=== PATIENT | female | born 1930 | race Caucasian/White ===

== ENCOUNTER 2020-09-21 14:35 | Inpatient (IN) | payer MEDICARE, MEDICAID ==
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
[2020-09-21 18:41] LABS: PTT,PARTIAL THROMBOPLSTIN TIME 27.8 SEC (22.0-34.0)
[2020-09-21 18:47] LABS: ANION GAP 9.8 mEq/L (7-13); CHLORIDE,CL 92 mmol/L (98-107); SODIUM,NA 132 mmol/L (136-145)
[2020-09-21] MEDS ORDERED: Budesonide 0.5 MG/2 ML Neb Susp INH SCH ×2 (20:00→21:00)
[2020-09-21] MEDS: Sertraline 50 MG Tab PO SCH (20:40)
[2020-09-21] MEDS: ClonazePAM 0.5 MG Tab PO PRN (20:41)
[2020-09-21] MEDS: Melatonin 3 MG Tab PO PRN (22:21)
[2020-09-22] MEDS: Pantoprazole 40 MG Tab.CR PO SCH ×2 (05:55→17:24)
[2020-09-22] MEDS: ClonazePAM 0.5 MG Tab PO PRN ×2 (07:59→17:24)
[2020-09-22] MEDS: Tamsulosin 0.4 MG Cap.ER PO SCH (07:59)
[2020-09-22] MEDS: Enoxaparin 40 MG/0.4 ML Syringe SUBCUT SCH (07:59)
[2020-09-22] MEDS: Cholecalciferol (Vitamin D3) 25 MCG Tab PO SCH (07:59)
[2020-09-22] MEDS: Sulfamethoxazole/Trimethoprim 800-160 MG Tab PO SCH ×2 (07:59→21:37)
[2020-09-22] MEDS: Aspirin 81 MG Tab.Chew PO SCH (07:59)
[2020-09-22] MEDS: Polyethylene Glycol 3350 Powder 17 GM Packet PO SCH (08:00)
[2020-09-22] MEDS: Ondansetron 4 MG Tab.DIS PO PRN ×2 (08:04→12:06)
[2020-09-22] MEDS ORDERED: Psyllium Husk Powder Sugar Free 5.85 GM Packet PO SCH (09:00)
[2020-09-22] MEDS ORDERED: Furosemide 20 MG Tab PO SCH (09:00)
[2020-09-22] MEDS ORDERED: Losartan 50 MG Tab PO SCH (09:00)
[2020-09-22] MEDS: Budesonide 0.5 MG/2 ML Neb Susp INH SCH ×2 (09:53→19:29)
[2020-09-22] MEDS: Calcium Carbonate 500 MG Tab.Chew PO PRN (14:20)
[2020-09-22] MEDS: Acetaminophen 325 MG Tab PO PRN ×2 (17:23→21:44)
[2020-09-22] MEDS: PROPYLENE GLYCOL EYEBOTH PRN (17:47)
[2020-09-22] MEDS: POLYETHYLENE GLYCOL EYEBOTH PRN (17:47)
[2020-09-22] MEDS ORDERED: Bismuth Subsalicylate 262 MG Tab.Chew PO PRN (18:36)
[2020-09-22] MEDS: Sertraline 50 MG Tab PO SCH (21:37)
[2020-09-22] MEDS: Melatonin 3 MG Tab PO PRN (21:43)
[2020-09-22] MEDS: SIM PO PRN (21:57)
[2020-09-22] MEDS: [UNRECOGNIZED DRUG - OTHER] PO PRN (21:57)
[2020-09-22] MEDS: MAG PO PRN (21:57)
[2020-09-22] MEDS: DIPHENHYD PO PRN (21:57)
[2020-09-23] MEDS: ClonazePAM 0.5 MG Tab PO PRN ×3 (01:27→21:51)
[2020-09-23] MEDS: Sertraline 50 MG Tab PO SCH ×2 (01:28→20:02)
[2020-09-23] MEDS: Pantoprazole 40 MG Tab.CR PO SCH ×2 (06:22→16:37)
[2020-09-23] MEDS: Budesonide 0.5 MG/2 ML Neb Susp INH SCH ×2 (08:00→18:55)
[2020-09-23] MEDS: Cholecalciferol (Vitamin D3) 25 MCG Tab PO SCH (09:16)
[2020-09-23] MEDS: Sulfamethoxazole/Trimethoprim 800-160 MG Tab PO SCH ×2 (09:16→20:02)
[2020-09-23] MEDS: Tamsulosin 0.4 MG Cap.ER PO SCH (09:17)
[2020-09-23] MEDS: Losartan 50 MG Tab PO SCH (09:17)
[2020-09-23] MEDS: Aspirin 81 MG Tab.Chew PO SCH (09:17)
[2020-09-23] MEDS: Polyethylene Glycol 3350 Powder 17 GM Packet PO SCH (09:18)
[2020-09-23] MEDS: Enoxaparin 40 MG/0.4 ML Syringe SUBCUT SCH (09:19)
[2020-09-23] MEDS: METAMUCIL PO SCH (09:20)
[2020-09-23] MEDS: BISMUTH SUBSALICYLATE 262 MG PO PRN (11:35)
[2020-09-23] MEDS: Ondansetron 4 MG Tab.DIS PO PRN (14:29)
[2020-09-23] MEDS: Acetaminophen 325 MG Tab PO PRN ×2 (14:32→20:04)
[2020-09-23] MEDS: Calcium Carbonate 500 MG Tab.Chew PO PRN (20:04)
[2020-09-23] MEDS: Albuterol 0.083% 2.5 MG/3 ML Neb Soln INH PRN (20:05)
[2020-09-23] MEDS: Melatonin 3 MG Tab PO PRN (21:50)
[2020-09-23] MEDS: POLYETHYLENE GLYCOL EYEBOTH PRN (22:20)
[2020-09-23] MEDS: PROPYLENE GLYCOL EYEBOTH PRN (22:20)
[2020-09-24] MEDS: Pantoprazole 40 MG Tab.CR PO SCH ×2 (06:11→15:40)
[2020-09-24] MEDS: Budesonide 0.5 MG/2 ML Neb Susp INH SCH ×2 (08:02→18:45)
[2020-09-24] MEDS: Sulfamethoxazole/Trimethoprim 800-160 MG Tab PO SCH ×2 (08:57→21:12)
[2020-09-24] MEDS: Tamsulosin 0.4 MG Cap.ER PO SCH (08:57)
[2020-09-24] MEDS: ClonazePAM 0.5 MG Tab PO PRN ×3 (08:57→23:38)
[2020-09-24] MEDS: hydrALAZINE 25 MG Tab PO SCH ×3 (08:57→23:48)
[2020-09-24] MEDS: Aspirin 81 MG Tab.Chew PO SCH (08:58)
[2020-09-24] MEDS: Losartan 50 MG Tab PO SCH (08:58)
[2020-09-24] MEDS: Enoxaparin 40 MG/0.4 ML Syringe SUBCUT SCH (08:58)
[2020-09-24] MEDS: METAMUCIL PO SCH (08:59)
[2020-09-24] MEDS: Polyethylene Glycol 3350 Powder 17 GM Packet PO SCH (08:59)
[2020-09-24] MEDS: Cholecalciferol (Vitamin D3) 25 MCG Tab PO SCH (08:59)
[2020-09-24] MEDS: Ondansetron 4 MG Tab.DIS PO PRN (13:33)
[2020-09-24] MEDS: Acetaminophen 325 MG Tab PO PRN ×2 (15:40→22:09)
[2020-09-24] MEDS: BISMUTH SUBSALICYLATE 262 MG PO PRN (16:44)
[2020-09-24] MEDS: Melatonin 3 MG Tab PO PRN (21:19)
[2020-09-24] MEDS: Sertraline 50 MG Tab PO SCH (21:19)
[2020-09-24] MEDS: SIM PO PRN (21:34)
[2020-09-24] MEDS: MAG PO PRN (21:34)
[2020-09-24] MEDS: [UNRECOGNIZED DRUG - OTHER] PO PRN (21:34)
[2020-09-24] MEDS: DIPHENHYD PO PRN (21:34)
[2020-09-25] MEDS: Acetaminophen 325 MG Tab PO PRN ×3 (04:21→20:25)
[2020-09-25] MEDS: Pantoprazole 40 MG Tab.CR PO SCH ×2 (06:20→15:36)
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
[2020-09-25] MEDS: Budesonide 0.5 MG/2 ML Neb Susp INH SCH ×2 (07:55→18:57)
[2020-09-25] MEDS ORDERED: cefTRIAXone 1 GM, Lidocaine 1% 2.1 ML IM ONE ×2 (09:00)
[2020-09-25] MEDS ORDERED: cefTRIAXone 1 GM Vial IM SCH (09:00)
[2020-09-25] MEDS: Aspirin 81 MG Tab.Chew PO SCH (09:57)
[2020-09-25] MEDS: Cholecalciferol (Vitamin D3) 25 MCG Tab PO SCH (09:57)
[2020-09-25] MEDS: Losartan 50 MG Tab PO SCH (09:57)
[2020-09-25] MEDS: Tamsulosin 0.4 MG Cap.ER PO SCH (09:58)
[2020-09-25] MEDS: Polyethylene Glycol 3350 Powder 17 GM Packet PO SCH (09:58)
[2020-09-25] MEDS: Sulfamethoxazole/Trimethoprim 800-160 MG Tab PO SCH (09:59)
[2020-09-25] MEDS: Enoxaparin 40 MG/0.4 ML Syringe SUBCUT SCH (10:02)
[2020-09-25] MEDS: PROPYLENE GLYCOL EYEBOTH PRN (10:04)
[2020-09-25] MEDS: POLYETHYLENE GLYCOL EYEBOTH PRN (10:04)
[2020-09-25] MEDS: METAMUCIL PO SCH (10:04)
[2020-09-25] MEDS: Enoxaparin 30 MG/0.3 ML Syringe SUBCUT SCH (10:16)
[2020-09-25] MEDS: hydrALAZINE 25 MG Tab PO SCH ×3 (10:18→23:24)
[2020-09-25] MEDS: ClonazePAM 0.5 MG Tab PO PRN ×2 (13:01→20:25)
[2020-09-25] MEDS: SENNOSIDES 8.6 MG PO SCH (14:32)
[2020-09-25] MEDS: Sertraline 50 MG Tab PO SCH (20:26)
[2020-09-25] MEDS: BISMUTH SUBSALICYLATE 262 MG PO PRN (20:28)
[2020-09-25] MEDS: Melatonin 3 MG Tab PO PRN (21:30)
[2020-09-25] MEDS: MAG PO PRN (21:39)
[2020-09-25] MEDS: [UNRECOGNIZED DRUG - OTHER] PO PRN (21:39)
[2020-09-25] MEDS: SIM PO PRN (21:39)
[2020-09-25] MEDS: DIPHENHYD PO PRN (21:39)
[2020-09-25] MEDS: oxyCODONE 5 MG Tab PO PRN (23:06)
[2020-09-26] MEDS: Pantoprazole 40 MG Tab.CR PO SCH ×2 (06:21→16:48)
[2020-09-26] MEDS: Budesonide 0.5 MG/2 ML Neb Susp INH SCH ×2 (07:35→17:58)
[2020-09-26] MEDS: hydrALAZINE 25 MG Tab PO SCH ×2 (08:19→16:48)
[2020-09-26] MEDS: Losartan 50 MG Tab PO SCH (08:20)
[2020-09-26] MEDS: Aspirin 81 MG Tab.Chew PO SCH (08:20)
[2020-09-26] MEDS: Enoxaparin 30 MG/0.3 ML Syringe SUBCUT SCH (08:20)
[2020-09-26] MEDS: Tamsulosin 0.4 MG Cap.ER PO SCH (08:20)
[2020-09-26] MEDS: Cholecalciferol (Vitamin D3) 25 MCG Tab PO SCH (08:20)
[2020-09-26] MEDS: Polyethylene Glycol 3350 Powder 17 GM Packet PO SCH (08:21)
[2020-09-26] MEDS: METAMUCIL PO SCH (08:25)
[2020-09-26] MEDS: ClonazePAM 0.5 MG Tab PO PRN ×2 (12:12→22:21)
[2020-09-26] MEDS: cefTRIAXone 1 GM, Lidocaine 1% 2.1 ML IM SCH ×2 (16:49)
[2020-09-26] MEDS: Sertraline 50 MG Tab PO SCH (20:17)
[2020-09-26] MEDS: Melatonin 3 MG Tab PO PRN (22:21)
[2020-09-27] MEDS: hydrALAZINE 25 MG Tab PO SCH ×3 (00:25→16:30)
[2020-09-27] MEDS: Pantoprazole 40 MG Tab.CR PO SCH ×2 (05:39→16:30)
[2020-09-27] MEDS: Acetaminophen 325 MG Tab PO PRN ×3 (05:39→22:23)
[2020-09-27] MEDS: Budesonide 0.5 MG/2 ML Neb Susp INH SCH ×2 (07:21→18:21)
[2020-09-27] MEDS: Polyethylene Glycol 3350 Powder 17 GM Packet PO SCH (09:00)
[2020-09-27] MEDS: Enoxaparin 30 MG/0.3 ML Syringe SUBCUT SCH (09:00)
[2020-09-27] MEDS: Ondansetron 4 MG Tab.DIS PO PRN (09:01)
[2020-09-27] MEDS: Losartan 50 MG Tab PO SCH (09:01)
[2020-09-27] MEDS: Tamsulosin 0.4 MG Cap.ER PO SCH (09:01)
[2020-09-27] MEDS: Cholecalciferol (Vitamin D3) 25 MCG Tab PO SCH (09:02)
[2020-09-27] MEDS: Aspirin 81 MG Tab.Chew PO SCH (09:02)
[2020-09-27] MEDS: METAMUCIL PO SCH (09:07)
[2020-09-27] MEDS: BISMUTH SUBSALICYLATE 262 MG PO PRN (10:42)
[2020-09-27] MEDS: ClonazePAM 0.5 MG Tab PO PRN ×2 (14:49→20:29)
[2020-09-27] MEDS: cefTRIAXone 1 GM, Lidocaine 1% 2.1 ML IM SCH ×2 (16:35)
[2020-09-27] MEDS: Sertraline 50 MG Tab PO SCH (20:30)
[2020-09-27] MEDS: Melatonin 3 MG Tab PO PRN (20:31)
[2020-09-28] MEDS: hydrALAZINE 25 MG Tab PO SCH ×3 (00:19→16:04)
[2020-09-28] MEDS: Pantoprazole 40 MG Tab.CR PO SCH ×2 (05:50→16:05)
[2020-09-28] MEDS: Budesonide 0.5 MG/2 ML Neb Susp INH SCH ×2 (08:16→18:28)
[2020-09-28] MEDS: Losartan 50 MG Tab PO SCH (09:14)
[2020-09-28] MEDS: Aspirin 81 MG Tab.Chew PO SCH (09:15)
[2020-09-28] MEDS: Tamsulosin 0.4 MG Cap.ER PO SCH (09:15)
[2020-09-28] MEDS: Enoxaparin 30 MG/0.3 ML Syringe SUBCUT SCH (09:16)
[2020-09-28] MEDS: Cholecalciferol (Vitamin D3) 25 MCG Tab PO SCH (09:17)
[2020-09-28] MEDS: Polyethylene Glycol 3350 Powder 17 GM Packet PO SCH (09:17)
[2020-09-28] MEDS: METAMUCIL PO SCH (09:23)
[2020-09-28] MEDS: ClonazePAM 0.5 MG Tab PO PRN ×2 (10:11→17:59)
[2020-09-28] MEDS: cefTRIAXone 1 GM, Lidocaine 1% 2.1 ML IM SCH ×2 (16:05)
[2020-09-28] MEDS: Acetaminophen 325 MG Tab PO PRN (21:41)
[2020-09-28] MEDS: Sertraline 50 MG Tab PO SCH (21:42)
[2020-09-28] MEDS: Melatonin 3 MG Tab PO PRN (21:42)
[2020-09-29] MEDS: hydrALAZINE 25 MG Tab PO SCH ×3 (00:14→16:16)
[2020-09-29] MEDS: ClonazePAM 0.5 MG Tab PO PRN ×3 (00:41→21:52)
[2020-09-29] MEDS: Pantoprazole 40 MG Tab.CR PO SCH ×2 (06:56→16:17)
[2020-09-29] MEDS: Cholecalciferol (Vitamin D3) 25 MCG Tab PO SCH (08:26)
[2020-09-29] MEDS: Aspirin 81 MG Tab.Chew PO SCH (08:26)
[2020-09-29] MEDS: Enoxaparin 30 MG/0.3 ML Syringe SUBCUT SCH (08:27)
[2020-09-29] MEDS: Tamsulosin 0.4 MG Cap.ER PO SCH (08:27)
[2020-09-29] MEDS: Polyethylene Glycol 3350 Powder 17 GM Packet PO SCH (08:27)
[2020-09-29] MEDS: Losartan 50 MG Tab PO SCH (08:28)
[2020-09-29] MEDS: METAMUCIL PO SCH (08:30)
[2020-09-29] MEDS: Budesonide 0.5 MG/2 ML Neb Susp INH SCH ×2 (11:15→18:55)
[2020-09-29] MEDS: Albuterol 0.083% 2.5 MG/3 ML Neb Soln INH PRN (11:15)
[2020-09-29] MEDS: Acetaminophen 325 MG Tab PO PRN (16:12)
[2020-09-29] MEDS: Sertraline 50 MG Tab PO SCH (21:50)
[2020-09-29] MEDS: Melatonin 3 MG Tab PO PRN (21:51)
[2020-09-30] MEDS: hydrALAZINE 25 MG Tab PO SCH ×4 (00:34→17:28)
[2020-09-30] MEDS: Acetaminophen 325 MG Tab PO PRN ×2 (00:46→21:02)
[2020-09-30] MEDS: oxyCODONE 5 MG Tab PO PRN (03:28)
[2020-09-30] MEDS: Pantoprazole 40 MG Tab.CR PO SCH ×2 (06:06→17:28)
[2020-09-30] MEDS: Budesonide 0.5 MG/2 ML Neb Susp INH SCH ×2 (08:11→18:55)
[2020-09-30] MEDS: Losartan 50 MG Tab PO SCH (09:47)
[2020-09-30] MEDS: Cholecalciferol (Vitamin D3) 25 MCG Tab PO SCH (09:47)
[2020-09-30] MEDS: Aspirin 81 MG Tab.Chew PO SCH (09:48)
[2020-09-30] MEDS: Tamsulosin 0.4 MG Cap.ER PO SCH (09:48)
[2020-09-30] MEDS: Enoxaparin 30 MG/0.3 ML Syringe SUBCUT SCH (09:48)
[2020-09-30] MEDS: ClonazePAM 0.5 MG Tab PO PRN ×3 (10:34→21:02)
[2020-09-30] MEDS: METAMUCIL PO SCH (13:40)
[2020-09-30] MEDS: Polyethylene Glycol 3350 Powder 17 GM Packet PO SCH (13:40)
[2020-09-30] MEDS: Sertraline 50 MG Tab PO SCH (21:00)
[2020-09-30] MEDS: Melatonin 3 MG Tab PO PRN (21:02)
[2020-10-01] MEDS: hydrALAZINE 25 MG Tab PO SCH ×3 (01:14→16:48)
[2020-10-01] MEDS: oxyCODONE 5 MG Tab PO PRN (01:47)
[2020-10-01] MEDS: Acetaminophen 325 MG Tab PO PRN ×2 (04:51→20:24)
[2020-10-01] MEDS: Pantoprazole 40 MG Tab.CR PO SCH ×2 (05:51→16:48)
[2020-10-01] MEDS: ClonazePAM 0.5 MG Tab PO PRN ×3 (05:52→20:25)
[2020-10-01] MEDS: Enoxaparin 30 MG/0.3 ML Syringe SUBCUT SCH (08:00)
[2020-10-01] MEDS: Tamsulosin 0.4 MG Cap.ER PO SCH (08:00)
[2020-10-01] MEDS: Cholecalciferol (Vitamin D3) 25 MCG Tab PO SCH (08:00)
[2020-10-01] MEDS: Polyethylene Glycol 3350 Powder 17 GM Packet PO SCH (08:01)
[2020-10-01] MEDS: Aspirin 81 MG Tab.Chew PO SCH (08:01)
[2020-10-01] MEDS: Losartan 50 MG Tab PO SCH (08:01)
[2020-10-01] MEDS: METAMUCIL PO SCH (08:08)
[2020-10-01] MEDS: Budesonide 0.5 MG/2 ML Neb Susp INH SCH ×2 (09:35→20:24)
[2020-10-01] MEDS: Melatonin 3 MG Tab PO PRN (20:25)
[2020-10-01] MEDS: Sertraline 50 MG Tab PO SCH (20:25)
[2020-10-02] MEDS: hydrALAZINE 25 MG Tab PO SCH ×4 (00:05→23:24)
[2020-10-02] MEDS: oxyCODONE 5 MG Tab PO PRN (01:16)
[2020-10-02] MEDS: Pantoprazole 40 MG Tab.CR PO SCH ×2 (06:30→16:14)
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
[2020-10-02] MEDS: Polyethylene Glycol 3350 Powder 17 GM Packet PO SCH (09:42)
[2020-10-02] MEDS: Enoxaparin 30 MG/0.3 ML Syringe SUBCUT SCH (09:42)
[2020-10-02] MEDS: Losartan 50 MG Tab PO SCH (09:47)
[2020-10-02] MEDS: Cholecalciferol (Vitamin D3) 25 MCG Tab PO SCH (09:47)
[2020-10-02] MEDS: METAMUCIL PO SCH (09:47)
[2020-10-02] MEDS: Aspirin 81 MG Tab.Chew PO SCH (09:47)
[2020-10-02] MEDS: Tamsulosin 0.4 MG Cap.ER PO SCH (09:47)
[2020-10-02] MEDS: Budesonide 0.5 MG/2 ML Neb Susp INH SCH ×2 (11:44→18:10)
[2020-10-02] MEDS: Acetaminophen 325 MG Tab PO PRN ×2 (14:43→21:26)
[2020-10-02] MEDS: ClonazePAM 0.5 MG Tab PO PRN (19:33)
[2020-10-02] MEDS: Sertraline 50 MG Tab PO SCH (21:20)
[2020-10-02] MEDS: Melatonin 3 MG Tab PO PRN (21:20)
[2020-10-03] MEDS: Acetaminophen 325 MG Tab PO PRN ×2 (02:41→19:27)
[2020-10-03] MEDS: Pantoprazole 40 MG Tab.CR PO SCH ×3 (04:53→16:02)
[2020-10-03] MEDS: oxyCODONE 5 MG Tab PO PRN (04:53)
[2020-10-03] MEDS: hydrALAZINE 25 MG Tab PO SCH ×2 (08:24→15:56)
[2020-10-03] MEDS: Ondansetron 4 MG Tab.DIS PO PRN (08:25)
[2020-10-03] MEDS: Tamsulosin 0.4 MG Cap.ER PO SCH (08:25)
[2020-10-03] MEDS: Cholecalciferol (Vitamin D3) 25 MCG Tab PO SCH (08:25)
[2020-10-03] MEDS: Losartan 50 MG Tab PO SCH (08:25)
[2020-10-03] MEDS: Aspirin 81 MG Tab.Chew PO SCH (08:25)
[2020-10-03] MEDS: Polyethylene Glycol 3350 Powder 17 GM Packet PO SCH (08:26)
[2020-10-03] MEDS: METAMUCIL PO SCH (08:27)
[2020-10-03] MEDS: Enoxaparin 30 MG/0.3 ML Syringe SUBCUT SCH (08:30)
[2020-10-03] MEDS: Budesonide 0.5 MG/2 ML Neb Susp INH SCH ×2 (08:35→18:38)
[2020-10-03] MEDS: ClonazePAM 0.5 MG Tab PO PRN ×2 (09:13→17:05)
[2020-10-03] MEDS: Sertraline 50 MG Tab PO SCH (21:31)
[2020-10-03] MEDS: Melatonin 3 MG Tab PO PRN (21:31)
[2020-10-03] MEDS: Albuterol 0.083% 2.5 MG/3 ML Neb Soln INH PRN (21:34)
[2020-10-04] MEDS: hydrALAZINE 25 MG Tab PO SCH ×4 (00:04→23:50)
[2020-10-04] MEDS: oxyCODONE 5 MG Tab PO PRN (00:52)
[2020-10-04] MEDS: Acetaminophen 325 MG Tab PO PRN ×2 (05:12→20:30)
[2020-10-04] MEDS: Pantoprazole 40 MG Tab.CR PO SCH ×2 (05:12→15:59)
[2020-10-04] MEDS: Budesonide 0.5 MG/2 ML Neb Susp INH SCH ×2 (07:32→17:36)
[2020-10-04] MEDS: METAMUCIL PO SCH (08:33)
[2020-10-04] MEDS: Aspirin 81 MG Tab.Chew PO SCH (08:34)
[2020-10-04] MEDS: Polyethylene Glycol 3350 Powder 17 GM Packet PO SCH (08:34)
[2020-10-04] MEDS: Cholecalciferol (Vitamin D3) 25 MCG Tab PO SCH (08:34)
[2020-10-04] MEDS: Losartan 50 MG Tab PO SCH (08:34)
[2020-10-04] MEDS: Tamsulosin 0.4 MG Cap.ER PO SCH (08:34)
[2020-10-04] MEDS: Enoxaparin 30 MG/0.3 ML Syringe SUBCUT SCH (08:35)
[2020-10-04] MEDS: Ondansetron 4 MG Tab.DIS PO PRN (10:04)
[2020-10-04] MEDS: BISMUTH SUBSALICYLATE 262 MG PO PRN (11:09)
[2020-10-04] MEDS: ClonazePAM 0.5 MG Tab PO PRN ×2 (16:20→22:28)
[2020-10-04 16:30] LABS: ANION GAP 9.8 mEq/L (7-13); CHLORIDE,CL 93 mmol/L (98-107); SODIUM,NA 130 mmol/L (136-145)
[2020-10-04] MEDS ORDERED: Sodium Polystyrene Sulfonate 15 GM/60 ML Susp 60 ML Bot PO ONE (16:54)
[2020-10-04] MEDS: Furosemide 20 MG Tab PO SCH (17:22)
[2020-10-04] MEDS: Sodium Chloride 1 GM Tab PO SCH ×2 (17:23→20:28)
[2020-10-04] MEDS: Nystatin Topical Powder 30 GM Bottle TOP SCH (20:27)
[2020-10-04] MEDS: Sertraline 50 MG Tab PO SCH (20:29)
[2020-10-04] MEDS: Melatonin 3 MG Tab PO PRN (20:30)
[2020-10-05] MEDS: Acetaminophen 325 MG Tab PO PRN ×2 (01:11→19:34)
[2020-10-05] MEDS: oxyCODONE 5 MG Tab PO PRN (03:45)
[2020-10-05] MEDS: Pantoprazole 40 MG Tab.CR PO SCH ×2 (06:07→17:07)
[2020-10-05] MEDS: Budesonide 0.5 MG/2 ML Neb Susp INH SCH ×3 (07:35→18:20)
[2020-10-05] MEDS: Losartan 50 MG Tab PO SCH (08:19)
[2020-10-05] MEDS: Sodium Chloride 1 GM Tab PO SCH ×2 (08:19→20:14)
[2020-10-05] MEDS: Tamsulosin 0.4 MG Cap.ER PO SCH (08:19)
[2020-10-05] MEDS: Furosemide 20 MG Tab PO SCH ×2 (08:20→14:16)
[2020-10-05] MEDS: hydrALAZINE 25 MG Tab PO SCH ×2 (08:20→17:07)
[2020-10-05] MEDS: Aspirin 81 MG Tab.Chew PO SCH (08:20)
[2020-10-05] MEDS: Polyethylene Glycol 3350 Powder 17 GM Packet PO SCH (08:20)
[2020-10-05] MEDS: Enoxaparin 30 MG/0.3 ML Syringe SUBCUT SCH (08:20)
[2020-10-05] MEDS: Cholecalciferol (Vitamin D3) 25 MCG Tab PO SCH (08:20)
[2020-10-05] MEDS: Nystatin Topical Powder 30 GM Bottle TOP SCH ×2 (08:23→20:30)
[2020-10-05] MEDS: METAMUCIL PO SCH (08:23)
[2020-10-05] MEDS: ClonazePAM 0.5 MG Tab PO PRN ×2 (14:16→20:14)
[2020-10-05 16:10] LABS: ANION GAP 8.8 mEq/L (7-13); CHLORIDE,CL 95 mmol/L (98-107); SODIUM,NA 135 mmol/L (136-145)
[2020-10-05] MEDS: Melatonin 3 MG Tab PO PRN (20:13)
[2020-10-05] MEDS: Sertraline 50 MG Tab PO SCH (20:13)
[2020-10-06] MEDS: hydrALAZINE 25 MG Tab PO SCH ×2 (00:54→07:44)
[2020-10-06] MEDS: Acetaminophen 325 MG Tab PO PRN ×3 (05:25→23:29)
[2020-10-06] MEDS: Pantoprazole 40 MG Tab.CR PO SCH (05:25)
[2020-10-06 06:37] LABS: ANION GAP 6.7 mEq/L (7-13); CHLORIDE,CL 97 mmol/L (98-107); SODIUM,NA 136 mmol/L (136-145)
[2020-10-06] MEDS: BISMUTH SUBSALICYLATE 262 MG PO PRN (07:43)
[2020-10-06] MEDS: Furosemide 20 MG Tab PO SCH (07:45)
[2020-10-06] MEDS: Sodium Chloride 1 GM Tab PO SCH ×2 (08:02→21:24)
[2020-10-06] MEDS: Tamsulosin 0.4 MG Cap.ER PO SCH (08:02)
[2020-10-06] MEDS: Aspirin 81 MG Tab.Chew PO SCH (08:02)
[2020-10-06] MEDS: Cholecalciferol (Vitamin D3) 25 MCG Tab PO SCH (08:02)
[2020-10-06] MEDS: Enoxaparin 30 MG/0.3 ML Syringe SUBCUT SCH (08:03)
[2020-10-06] MEDS: Polyethylene Glycol 3350 Powder 17 GM Packet PO SCH (08:03)
[2020-10-06] MEDS: Losartan 50 MG Tab PO SCH (08:03)
[2020-10-06] MEDS: METAMUCIL PO SCH (08:04)
[2020-10-06] MEDS: Nystatin Topical Powder 30 GM Bottle TOP SCH ×2 (08:04→21:26)
[2020-10-06] MEDS: Budesonide 0.5 MG/2 ML Neb Susp INH SCH ×2 (08:19→17:54)
[2020-10-06] MEDS ORDERED: Cyanocobalamin (Vitamin B12) 1,000 MCG/ML SDV IM ONE (09:46)
[2020-10-06] MEDS: amLODIPine 5 MG Tab PO SCH (10:47)
[2020-10-06] MEDS: Ondansetron 4 MG Tab.DIS PO PRN (10:53)
[2020-10-06] MEDS: ClonazePAM 0.5 MG Tab PO PRN ×3 (10:53→23:29)
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
[2020-10-06] MEDS: SIM PO PRN (21:22)
[2020-10-06] MEDS: MAG PO PRN (21:22)
[2020-10-06] MEDS: [UNRECOGNIZED DRUG - OTHER] PO PRN (21:22)
[2020-10-06] MEDS: DIPHENHYD PO PRN (21:22)
[2020-10-06] MEDS: Sertraline 50 MG Tab PO SCH (21:24)
[2020-10-06] MEDS: oxyCODONE 5 MG Tab PO PRN (21:25)
[2020-10-06] MEDS: Melatonin 3 MG Tab PO PRN (21:26)
[2020-10-07] MEDS: Pantoprazole 40 MG Tab.CR PO SCH (06:04)
[2020-10-07] MEDS: Budesonide 0.5 MG/2 ML Neb Susp INH SCH ×2 (08:01→17:58)
[2020-10-07] MEDS: BISMUTH SUBSALICYLATE 262 MG PO PRN (08:35)
[2020-10-07] MEDS: Furosemide 20 MG Tab PO SCH (10:00)
[2020-10-07] MEDS: Aspirin 81 MG Tab.Chew PO SCH (10:30)
[2020-10-07] MEDS: ClonazePAM 0.5 MG Tab PO PRN ×3 (10:30→20:38)
[2020-10-07] MEDS: Enoxaparin 40 MG/0.4 ML Syringe SUBCUT SCH (10:30)
[2020-10-07] MEDS: METAMUCIL PO SCH (10:56)
[2020-10-07] MEDS: Losartan 50 MG Tab PO SCH (10:56)
[2020-10-07] MEDS: Calcium Carbonate/Vitamin D3 1250 MG-5 MCG Tab PO SCH (10:56)
[2020-10-07] MEDS: Sodium Chloride 1 GM Tab PO SCH ×2 (10:58→20:38)
[2020-10-07] MEDS: Megestrol 40 MG Tab PO SCH (10:59)
[2020-10-07] MEDS: Polyethylene Glycol 3350 Powder 17 GM Packet PO SCH (10:59)
[2020-10-07] MEDS: amLODIPine 5 MG Tab PO SCH (10:59)
[2020-10-07] MEDS: Nystatin Topical Powder 30 GM Bottle TOP SCH ×2 (12:40→20:37)
[2020-10-07] MEDS: Acetaminophen 325 MG Tab PO PRN (20:38)
[2020-10-07] MEDS: Sertraline 50 MG Tab PO SCH (20:39)
[2020-10-07] MEDS: Melatonin 3 MG Tab PO PRN (21:46)
[2020-10-08] MEDS: Pantoprazole 40 MG Tab.CR PO SCH (06:14)
[2020-10-08] MEDS: Budesonide 0.5 MG/2 ML Neb Susp INH SCH ×2 (07:55→17:53)
[2020-10-08] MEDS: amLODIPine 5 MG Tab PO SCH (09:23)
[2020-10-08] MEDS: Calcium Carbonate/Vitamin D3 1250 MG-5 MCG Tab PO SCH (09:23)
[2020-10-08] MEDS: Losartan 50 MG Tab PO SCH (09:24)
[2020-10-08] MEDS: Furosemide 20 MG Tab PO SCH (09:24)
[2020-10-08] MEDS: Sodium Chloride 1 GM Tab PO SCH ×2 (09:24→21:39)
[2020-10-08] MEDS: Megestrol 40 MG Tab PO SCH (09:24)
[2020-10-08] MEDS: Aspirin 81 MG Tab.Chew PO SCH (09:24)
[2020-10-08] MEDS: METAMUCIL PO SCH (09:26)
[2020-10-08] MEDS: Enoxaparin 40 MG/0.4 ML Syringe SUBCUT SCH (09:26)
[2020-10-08] MEDS: Polyethylene Glycol 3350 Powder 17 GM Packet PO SCH (09:27)
[2020-10-08] MEDS: Nystatin Topical Powder 30 GM Bottle TOP SCH ×2 (09:27→21:44)
[2020-10-08] MEDS: ClonazePAM 0.5 MG Tab PO PRN ×3 (10:15→21:40)
[2020-10-08] MEDS: Acetaminophen 325 MG Tab PO PRN ×2 (15:08→22:06)
[2020-10-08] MEDS: Sertraline 50 MG Tab PO SCH (21:39)
[2020-10-08] MEDS: Melatonin 3 MG Tab PO PRN (21:40)
[2020-10-09] MEDS: Acetaminophen 325 MG Tab PO PRN ×4 (05:35→21:29)
[2020-10-09] MEDS: Pantoprazole 40 MG Tab.CR PO SCH (06:10)
[2020-10-09 06:48] LABS: ANION GAP 8.7 mEq/L (7-13); CHLORIDE,CL 98 mmol/L (98-107); SODIUM,NA 136 mmol/L (136-145)
[2020-10-09] MEDS: Budesonide 0.5 MG/2 ML Neb Susp INH SCH ×2 (07:55→17:59)
[2020-10-09] MEDS: Megestrol 40 MG Tab PO SCH (08:58)
[2020-10-09] MEDS: Aspirin 81 MG Tab.Chew PO SCH (08:58)
[2020-10-09] MEDS: Sodium Chloride 1 GM Tab PO SCH ×2 (08:58→21:28)
[2020-10-09] MEDS: Furosemide 20 MG Tab PO SCH (08:58)
[2020-10-09] MEDS: ClonazePAM 0.5 MG Tab PO PRN ×3 (08:58→21:27)
[2020-10-09] MEDS: Calcium Carbonate/Vitamin D3 1250 MG-5 MCG Tab PO SCH (08:58)
[2020-10-09] MEDS: amLODIPine 5 MG Tab PO SCH (08:59)
[2020-10-09] MEDS: Losartan 50 MG Tab PO SCH (08:59)
[2020-10-09] MEDS: METAMUCIL PO SCH (09:00)
[2020-10-09] MEDS: Enoxaparin 40 MG/0.4 ML Syringe SUBCUT SCH (09:00)
[2020-10-09] MEDS: Polyethylene Glycol 3350 Powder 17 GM Packet PO SCH (09:00)
[2020-10-09] MEDS: Nystatin Topical Powder 30 GM Bottle TOP SCH ×2 (09:00→21:34)
[2020-10-09] MEDS: Ondansetron 4 MG Tab.DIS PO PRN ×2 (09:53→21:27)
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
[2020-10-09] MEDS: Ciprofloxacin 500 MG Tab PO SCH ×2 (13:18→21:28)
[2020-10-09] MEDS: Melatonin 3 MG Tab PO PRN (21:28)
[2020-10-09] MEDS: Sertraline 50 MG Tab PO SCH (21:29)
[2020-10-10] MEDS: Acetaminophen 325 MG Tab PO PRN ×3 (02:54→23:12)
[2020-10-10] MEDS: Pantoprazole 40 MG Tab.CR PO SCH (06:10)
[2020-10-10] MEDS: Budesonide 0.5 MG/2 ML Neb Susp INH SCH ×2 (08:02→17:38)
[2020-10-10] MEDS: Megestrol 40 MG Tab PO SCH (09:42)
[2020-10-10] MEDS: Aspirin 81 MG Tab.Chew PO SCH (09:42)
[2020-10-10] MEDS: Sodium Chloride 1 GM Tab PO SCH ×2 (09:42→21:39)
[2020-10-10] MEDS: Losartan 50 MG Tab PO SCH (09:43)
[2020-10-10] MEDS: Ciprofloxacin 500 MG Tab PO SCH ×2 (09:44→21:38)
[2020-10-10] MEDS: Furosemide 20 MG Tab PO SCH (09:44)
[2020-10-10] MEDS: amLODIPine 5 MG Tab PO SCH (09:44)
[2020-10-10] MEDS: Ondansetron 4 MG Tab.DIS PO PRN ×2 (09:44→21:36)
[2020-10-10] MEDS: Calcium Carbonate/Vitamin D3 1250 MG-5 MCG Tab PO SCH (09:44)
[2020-10-10] MEDS: ClonazePAM 0.5 MG Tab PO PRN ×3 (09:44→23:11)
[2020-10-10] MEDS: Polyethylene Glycol 3350 Powder 17 GM Packet PO SCH (09:47)
[2020-10-10] MEDS: Enoxaparin 40 MG/0.4 ML Syringe SUBCUT SCH (09:48)
[2020-10-10] MEDS: Nystatin Topical Powder 30 GM Bottle TOP SCH ×2 (09:51→21:35)
[2020-10-10] MEDS: METAMUCIL PO SCH (09:52)
[2020-10-10] MEDS: Sertraline 50 MG Tab PO SCH (21:36)
[2020-10-10] MEDS: Melatonin 3 MG Tab PO PRN (21:38)
[2020-10-11] MEDS: Pantoprazole 40 MG Tab.CR PO SCH (06:13)
[2020-10-11] MEDS: Budesonide 0.5 MG/2 ML Neb Susp INH SCH ×2 (07:47→18:27)
[2020-10-11] MEDS: Sodium Chloride 1 GM Tab PO SCH ×2 (09:53→20:54)
[2020-10-11] MEDS: Calcium Carbonate/Vitamin D3 1250 MG-5 MCG Tab PO SCH (09:54)
[2020-10-11] MEDS: Megestrol 40 MG Tab PO SCH (09:54)
[2020-10-11] MEDS: ClonazePAM 0.5 MG Tab PO PRN ×3 (09:54→22:31)
[2020-10-11] MEDS: Ondansetron 4 MG Tab.DIS PO PRN ×2 (09:54→20:55)
[2020-10-11] MEDS: Furosemide 20 MG Tab PO SCH (09:55)
[2020-10-11] MEDS: Losartan 50 MG Tab PO SCH (09:55)
[2020-10-11] MEDS: Aspirin 81 MG Tab.Chew PO SCH (09:55)
[2020-10-11] MEDS: amLODIPine 5 MG Tab PO SCH (09:56)
[2020-10-11] MEDS: METAMUCIL PO SCH (09:57)
[2020-10-11] MEDS: Ciprofloxacin 500 MG Tab PO SCH ×2 (09:57→20:54)
[2020-10-11] MEDS: Enoxaparin 40 MG/0.4 ML Syringe SUBCUT SCH (09:58)
[2020-10-11] MEDS: Polyethylene Glycol 3350 Powder 17 GM Packet PO SCH (09:58)
[2020-10-11] MEDS: Nystatin Topical Powder 30 GM Bottle TOP SCH ×2 (10:00→20:56)
[2020-10-11] MEDS: Acetaminophen 325 MG Tab PO PRN ×2 (16:28→20:55)
[2020-10-11] MEDS: Sertraline 50 MG Tab PO SCH (20:53)
[2020-10-12] MEDS: Pantoprazole 40 MG Tab.CR PO SCH (05:16)
[2020-10-12] MEDS: ClonazePAM 0.5 MG Tab PO PRN ×2 (05:16→19:16)
[2020-10-12] MEDS: Acetaminophen 325 MG Tab PO PRN ×3 (05:16→19:15)
[2020-10-12 06:05] LABS: ANION GAP 9.7 mEq/L (7-13); CHLORIDE,CL 98 mmol/L (98-107); SODIUM,NA 136 mmol/L (136-145)
[2020-10-12] MEDS: Sodium Chloride 1 GM Tab PO SCH ×2 (08:58→21:27)
[2020-10-12] MEDS: Ciprofloxacin 500 MG Tab PO SCH (08:59)
[2020-10-12] MEDS: Furosemide 20 MG Tab PO SCH (09:00)
[2020-10-12] MEDS: Calcium Carbonate/Vitamin D3 1250 MG-5 MCG Tab PO SCH (09:00)
[2020-10-12] MEDS: Losartan 50 MG Tab PO SCH (09:01)
[2020-10-12] MEDS: amLODIPine 5 MG Tab PO SCH (09:02)
[2020-10-12] MEDS: Aspirin 81 MG Tab.Chew PO SCH (09:03)
[2020-10-12] MEDS: Polyethylene Glycol 3350 Powder 17 GM Packet PO SCH (09:03)
[2020-10-12] MEDS: Megestrol 40 MG Tab PO SCH (09:03)
[2020-10-12] MEDS: Enoxaparin 40 MG/0.4 ML Syringe SUBCUT SCH (09:04)
[2020-10-12] MEDS: METAMUCIL PO SCH (09:05)
[2020-10-12] MEDS: Nystatin Topical Powder 30 GM Bottle TOP SCH ×2 (09:06→21:51)
[2020-10-12] MEDS: Ondansetron 4 MG Tab.DIS PO PRN (09:29)
[2020-10-12] MEDS: Ertapenem 1 GM in Sodium Chloride 0.9% 50 ML IV SCH (10:24)
[2020-10-12] MEDS: Budesonide 0.5 MG/2 ML Neb Susp INH SCH ×2 (12:03→18:16)
--- NOTE | 2020-10-12 14:37 | CR ---
PROCEDURE INFORMATION: Exam: XR Left Ankle Exam date and time: 10/12/2020 2:07 PM Age: 89 years old Clinical indication: Pain; Ankle and foot; Left TECHNIQUE: Imaging protocol: XR Left ankle. Views: 3 or more views. COMPARISON: No relevant prior studies available. FINDINGS: Bones/joints: There is a fracture of the proximal shaft of the left 5th metatarsal with minimal displacement or angulation of the fracture fragments. The bone density is moderately decreased. The mortise joint space is symmetric. Soft tissues: There is mild soft tissue swelling. Vasculature: The vasculature demonstrates diffuse moderate atherosclerotic calcification. IMPRESSION: 1. Soft tissue swelling around the ankle. 2. Fracture of the proximal shaft of the left 5th metatarsal.
--- NOTE | 2020-10-12 14:39 | CR ---
PROCEDURE INFORMATION: Exam: XR Left Foot Exam date and time: 10/12/2020 2:08 PM Age: 89 years old Clinical indication: Pain; Ankle and foot; Left TECHNIQUE: Imaging protocol: XR Left foot. Views: 3 or more views. COMPARISON: CR Ankle Min 3V Lt 10/12/2020 2:07 PM FINDINGS: Bones/joints: The bone density is moderately decreased. There is varus angulation of the 1st and 2nd metatarsophalangeal joints. There is a nondisplaced fracture through the proximal shaft of the left 5th metatarsal. Soft tissues: There is mild soft tissue swelling. IMPRESSION: 1. Fracture of the proximal shaft of the left 5th metatarsal. 2. Varus angulation of the 1st and 2nd metatarsophalangeal joints.
[2020-10-12] MEDS: Sertraline 50 MG Tab PO SCH (21:26)
[2020-10-12] MEDS: Melatonin 3 MG Tab PO PRN (21:30)
[2020-10-13] MEDS: Pantoprazole 40 MG Tab.CR PO SCH (05:52)
[2020-10-13] MEDS: Acetaminophen 325 MG Tab PO PRN ×2 (05:53→21:48)
[2020-10-13] MEDS: ClonazePAM 0.5 MG Tab PO PRN ×2 (06:12→18:15)
[2020-10-13] MEDS: Ertapenem 1 GM in Sodium Chloride 0.9% 50 ML IV SCH (09:09)
[2020-10-13] MEDS: Furosemide 20 MG Tab PO SCH (09:10)
[2020-10-13] MEDS: Budesonide 0.5 MG/2 ML Neb Susp INH SCH ×2 (09:10→18:24)
[2020-10-13] MEDS: Polyethylene Glycol 3350 Powder 17 GM Packet PO SCH (09:10)
[2020-10-13] MEDS: amLODIPine 5 MG Tab PO SCH (09:10)
[2020-10-13] MEDS: Enoxaparin 40 MG/0.4 ML Syringe SUBCUT SCH (09:10)
[2020-10-13] MEDS: Nystatin Topical Powder 30 GM Bottle TOP SCH ×2 (09:11→21:05)
[2020-10-13] MEDS: Losartan 50 MG Tab PO SCH (09:11)
[2020-10-13] MEDS: Calcium Carbonate/Vitamin D3 1250 MG-5 MCG Tab PO SCH (09:11)
[2020-10-13] MEDS: Megestrol 40 MG Tab PO SCH (09:11)
[2020-10-13] MEDS: Aspirin 81 MG Tab.Chew PO SCH (09:11)
[2020-10-13] MEDS: METAMUCIL PO SCH (09:12)
[2020-10-13] MEDS: Sodium Chloride 1 GM Tab PO SCH ×2 (09:14→21:50)
[2020-10-13] MEDS: Sertraline 50 MG Tab PO SCH (21:49)
[2020-10-13] MEDS: Melatonin 3 MG Tab PO PRN (21:50)
[2020-10-14] MEDS: Pantoprazole 40 MG Tab.CR PO SCH (06:00)
[2020-10-14] MEDS: Acetaminophen 325 MG Tab PO PRN ×2 (06:36→16:37)
[2020-10-14] MEDS: Calcium Carbonate/Vitamin D3 1250 MG-5 MCG Tab PO SCH (08:26)
[2020-10-14] MEDS: amLODIPine 5 MG Tab PO SCH (08:26)
[2020-10-14] MEDS: Megestrol 40 MG Tab PO SCH (08:26)
[2020-10-14] MEDS: Aspirin 81 MG Tab.Chew PO SCH (08:26)
[2020-10-14] MEDS: Furosemide 20 MG Tab PO SCH (08:26)
[2020-10-14] MEDS: Sodium Chloride 1 GM Tab PO SCH ×2 (08:26→20:03)
[2020-10-14] MEDS: Losartan 50 MG Tab PO SCH (08:27)
[2020-10-14] MEDS: Enoxaparin 40 MG/0.4 ML Syringe SUBCUT SCH (08:27)
[2020-10-14] MEDS: Polyethylene Glycol 3350 Powder 17 GM Packet PO SCH (08:27)
[2020-10-14] MEDS: METAMUCIL PO SCH (08:28)
[2020-10-14] MEDS: Nystatin Topical Powder 30 GM Bottle TOP SCH ×2 (08:29→20:03)
[2020-10-14] MEDS: Budesonide 0.5 MG/2 ML Neb Susp INH SCH ×2 (09:20→18:18)
[2020-10-14] MEDS: Ertapenem 1 GM in Sodium Chloride 0.9% 50 ML IV SCH (09:35)
[2020-10-14] MEDS: ClonazePAM 0.5 MG Tab PO PRN ×2 (12:54→19:15)
[2020-10-14] MEDS: Albuterol 0.083% 2.5 MG/3 ML Neb Soln INH PRN (18:42)
[2020-10-14] MEDS: Sertraline 50 MG Tab PO SCH (20:03)
[2020-10-14] MEDS: DIPHENHYD PO PRN (22:19)
[2020-10-14] MEDS: MAG PO PRN (22:19)
[2020-10-14] MEDS: SIM PO PRN (22:19)
[2020-10-14] MEDS: [UNRECOGNIZED DRUG - OTHER] PO PRN (22:19)
[2020-10-15] MEDS: Pantoprazole 40 MG Tab.CR PO SCH (05:53)
[2020-10-15] MEDS: Furosemide 20 MG Tab PO SCH (08:15)
[2020-10-15] MEDS: Sodium Chloride 1 GM Tab PO SCH ×2 (08:15→21:11)
[2020-10-15] MEDS: Calcium Carbonate/Vitamin D3 1250 MG-5 MCG Tab PO SCH (08:15)
[2020-10-15] MEDS: Enoxaparin 40 MG/0.4 ML Syringe SUBCUT SCH (08:16)
[2020-10-15] MEDS: Megestrol 40 MG Tab PO SCH (08:16)
[2020-10-15] MEDS: Aspirin 81 MG Tab.Chew PO SCH (08:16)
[2020-10-15] MEDS: amLODIPine 5 MG Tab PO SCH (08:21)
[2020-10-15] MEDS: Losartan 50 MG Tab PO SCH (08:21)
[2020-10-15] MEDS: Polyethylene Glycol 3350 Powder 17 GM Packet PO SCH (08:22)
[2020-10-15] MEDS: Nystatin Topical Powder 30 GM Bottle TOP SCH ×2 (08:25→21:15)
[2020-10-15] MEDS: METAMUCIL PO SCH (08:25)
[2020-10-15] MEDS: Ertapenem 1 GM in Sodium Chloride 0.9% 50 ML IV SCH (09:41)
[2020-10-15] MEDS: Budesonide 0.5 MG/2 ML Neb Susp INH SCH ×2 (10:29→18:50)
[2020-10-15] MEDS: ClonazePAM 0.5 MG Tab PO PRN ×2 (16:25→22:34)
[2020-10-15] MEDS: Acetaminophen 325 MG Tab PO PRN (19:43)
[2020-10-15] MEDS: Sertraline 50 MG Tab PO SCH (21:12)
[2020-10-15] MEDS: Melatonin 3 MG Tab PO PRN (21:13)
[2020-10-15] MEDS: [UNRECOGNIZED DRUG - OTHER] PO PRN (22:34)
[2020-10-15] MEDS: SIM PO PRN (22:34)
[2020-10-15] MEDS: DIPHENHYD PO PRN (22:34)
[2020-10-15] MEDS: MAG PO PRN (22:34)
[2020-10-16] MEDS: Pantoprazole 40 MG Tab.CR PO SCH (05:40)
[2020-10-16] MEDS: Enoxaparin 40 MG/0.4 ML Syringe SUBCUT SCH (08:36)
[2020-10-16] MEDS: Sodium Chloride 1 GM Tab PO SCH ×2 (08:36→20:26)
[2020-10-16] MEDS: Aspirin 81 MG Tab.Chew PO SCH (08:37)
[2020-10-16] MEDS: Calcium Carbonate/Vitamin D3 1250 MG-5 MCG Tab PO SCH (08:37)
[2020-10-16] MEDS: Furosemide 20 MG Tab PO SCH (08:37)
[2020-10-16] MEDS: amLODIPine 5 MG Tab PO SCH (08:37)
[2020-10-16] MEDS: Megestrol 40 MG Tab PO SCH (08:37)
[2020-10-16] MEDS: Losartan 50 MG Tab PO SCH (08:37)
[2020-10-16] MEDS: Nystatin Topical Powder 30 GM Bottle TOP SCH ×2 (08:41→21:22)
[2020-10-16] MEDS: METAMUCIL PO SCH (08:42)
[2020-10-16] MEDS: Polyethylene Glycol 3350 Powder 17 GM Packet PO SCH (08:42)
[2020-10-16] MEDS: Ertapenem 1 GM in Sodium Chloride 0.9% 50 ML IV SCH (09:16)
[2020-10-16] MEDS: Budesonide 0.5 MG/2 ML Neb Susp INH SCH ×2 (09:45→18:34)
[2020-10-16] MEDS: Acetaminophen 325 MG Tab PO PRN ×2 (15:53→19:37)
[2020-10-16] MEDS: Sertraline 50 MG Tab PO SCH (20:26)
[2020-10-16] MEDS: Melatonin 3 MG Tab PO PRN (20:26)
[2020-10-16] MEDS: ClonazePAM 0.5 MG Tab PO PRN (20:26)
[2020-10-16] MEDS: oxyCODONE 5 MG Tab PO PRN (22:27)
[2020-10-16] MEDS: hydrOXYzine HCl 10 MG Tab PO PRN (22:27)
[2020-10-17] MEDS: Pantoprazole 40 MG Tab.CR PO SCH (06:27)
[2020-10-17 06:41] LABS: ANION GAP 5.8 mEq/L (7-13)
[2020-10-17] MEDS: METAMUCIL PO SCH (10:00)
[2020-10-17] MEDS: Budesonide 0.5 MG/2 ML Neb Susp INH SCH ×2 (10:13→18:33)
[2020-10-17] MEDS: ClonazePAM 0.5 MG Tab PO PRN ×2 (10:15→21:14)
[2020-10-17] MEDS: Sodium Chloride 1 GM Tab PO SCH ×2 (10:18→21:14)
[2020-10-17] MEDS: Megestrol 40 MG Tab PO SCH (10:19)
[2020-10-17] MEDS: Losartan 50 MG Tab PO SCH (10:21)
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
[2020-10-17] MEDS: amLODIPine 5 MG Tab PO SCH (10:23)
[2020-10-17] MEDS: Aspirin 81 MG Tab.Chew PO SCH (10:25)
[2020-10-17] MEDS: Calcium Carbonate/Vitamin D3 1250 MG-5 MCG Tab PO SCH (10:26)
[2020-10-17] MEDS: Furosemide 20 MG Tab PO SCH (10:26)
[2020-10-17] MEDS: Nystatin Topical Powder 30 GM Bottle TOP SCH ×2 (10:27→21:16)
[2020-10-17] MEDS: Polyethylene Glycol 3350 Powder 17 GM Packet PO SCH (10:27)
[2020-10-17] MEDS: Enoxaparin 40 MG/0.4 ML Syringe SUBCUT SCH (10:28)
[2020-10-17] MEDS: Ertapenem 1 GM in Sodium Chloride 0.9% 50 ML IV SCH (10:54)
[2020-10-17] MEDS: Acetaminophen 325 MG Tab PO PRN (18:33)
[2020-10-17] MEDS: Sertraline 50 MG Tab PO SCH (21:13)
[2020-10-17] MEDS: Melatonin 3 MG Tab PO PRN (21:14)
[2020-10-17] MEDS: hydrOXYzine HCl 10 MG Tab PO PRN (21:15)
[2020-10-17] MEDS: BISMUTH SUBSALICYLATE 262 MG PO PRN (21:16)
[2020-10-18] MEDS: Pantoprazole 40 MG Tab.CR PO SCH (06:07)
[2020-10-18] MEDS: Budesonide 0.5 MG/2 ML Neb Susp INH SCH ×2 (08:09→18:56)
[2020-10-18] MEDS: Losartan 50 MG Tab PO SCH (09:59)
[2020-10-18] MEDS: amLODIPine 5 MG Tab PO SCH (10:00)
[2020-10-18] MEDS: Enoxaparin 40 MG/0.4 ML Syringe SUBCUT SCH (10:03)
[2020-10-18] MEDS: Megestrol 40 MG Tab PO SCH (10:03)
[2020-10-18] MEDS: Sodium Chloride 1 GM Tab PO SCH ×2 (10:04→20:51)
[2020-10-18] MEDS: Furosemide 20 MG Tab PO SCH (10:04)
[2020-10-18] MEDS: Calcium Carbonate/Vitamin D3 1250 MG-5 MCG Tab PO SCH (10:05)
[2020-10-18] MEDS: Aspirin 81 MG Tab.Chew PO SCH (10:05)
[2020-10-18] MEDS: METAMUCIL PO SCH (10:06)
[2020-10-18] MEDS: ClonazePAM 0.5 MG Tab PO PRN ×2 (10:21→16:53)
[2020-10-18] MEDS: Polyethylene Glycol 3350 Powder 17 GM Packet PO SCH (10:22)
[2020-10-18] MEDS: Nystatin Topical Powder 30 GM Bottle TOP SCH ×2 (10:23→21:00)
[2020-10-18] MEDS: Acetaminophen 325 MG Tab PO PRN (16:56)
--- NOTE | 2020-10-18 18:53 | PCM.SN.2 ---
- Free Text/Narrative Note: asked to see patient sec. to increased weakness and drowsiness and going backward with p.t. patient has itching and started hydroxyzine and is on long term care phlebotomist clonazepam for anxiety. no other sedating meds but is on low dose sertraline. "she eats poorly and is on all those other meds she did not take at home ." she is aware and repeat neuro exams have not shown deficit but now 2 person lift and walking assist . daughter present and has follow up ortho appointment in am. ros neg other than weak and sleeping alot. no fever and no chills and bms now improved since starting fiber and miralax. on peptobismol and daily baby asa. dietary eats 50% on avg. p.e rt fx arm in sling rt btk cast on ankle/foot toes well prefused. skin no sign rash. build :severe atrophy of muscles grossly and kyphotic posture. labs and meds reviewed. assess; weakness seems generalized and will decrease meds to help sedation . chronic anxiety. multiple fractures and at high high risk for repetitive fx . needs full support malnutrition long standing. anemia with low iron needs i.v iron for quick replacement// oral iron if cannot get i.v access. decrease sedating meds and descrease b.p meds . dc peptobismol as on asa. boh
[2020-10-18] MEDS ORDERED: ClonazePAM 0.5 MG Tab PO PRN (18:59)
[2020-10-18] MEDS: Melatonin 3 MG Tab PO PRN (20:52)
[2020-10-18] MEDS: hydrOXYzine HCl 10 MG Tab PO PRN (20:53)
[2020-10-18] MEDS: ClonazePAM 0.5 MG Tab PO SCH (20:53)
[2020-10-18] MEDS: Sertraline 50 MG Tab PO SCH (20:53)
[2020-10-19] MEDS: Pantoprazole 40 MG Tab.CR PO SCH (06:44)
[2020-10-19] MEDS: Budesonide 0.5 MG/2 ML Neb Susp INH SCH ×2 (07:24→18:39)
[2020-10-19] MEDS: Sodium Chloride 1 GM Tab PO SCH ×3 (07:34→20:14)
[2020-10-19] MEDS: Megestrol 40 MG Tab PO SCH ×2 (07:36→11:10)
[2020-10-19] MEDS: Calcium Carbonate/Vitamin D3 1250 MG-5 MCG Tab PO SCH ×2 (07:36→11:10)
[2020-10-19] MEDS: ClonazePAM 0.5 MG Tab PO SCH ×2 (07:36→20:15)
[2020-10-19] MEDS: Aspirin 81 MG Tab.Chew PO SCH ×2 (07:37→11:10)
[2020-10-19] MEDS: Losartan 50 MG Tab PO SCH ×2 (07:38→11:10)
[2020-10-19] MEDS: amLODIPine 5 MG Tab PO SCH ×2 (07:39→11:10)
[2020-10-19] MEDS: Furosemide 20 MG Tab PO SCH (08:05)
[2020-10-19] MEDS: Enoxaparin 40 MG/0.4 ML Syringe SUBCUT SCH (08:07)
[2020-10-19] MEDS: Nystatin Topical Powder 30 GM Bottle TOP SCH ×2 (08:08→20:19)
[2020-10-19] MEDS: Polyethylene Glycol 3350 Powder 17 GM Packet PO SCH (08:08)
[2020-10-19] MEDS: METAMUCIL PO SCH (08:09)
[2020-10-19] MEDS: Sertraline 50 MG Tab PO SCH (20:14)
[2020-10-19] MEDS: hydrOXYzine HCl 10 MG Tab PO PRN (20:15)
[2020-10-19] MEDS: Melatonin 3 MG Tab PO PRN (20:15)
[2020-10-20] MEDS: Pantoprazole 40 MG Tab.CR PO SCH (07:26)
[2020-10-20] MEDS: Budesonide 0.5 MG/2 ML Neb Susp INH SCH ×2 (07:50→18:44)
[2020-10-20] MEDS: ClonazePAM 0.5 MG Tab PO SCH ×4 (07:59→22:18)
[2020-10-20] MEDS: Furosemide 20 MG Tab PO SCH (10:10)
[2020-10-20] MEDS: Polyethylene Glycol 3350 Powder 17 GM Packet PO SCH (10:11)
[2020-10-20] MEDS: Calcium Carbonate/Vitamin D3 1250 MG-5 MCG Tab PO SCH (10:11)
[2020-10-20] MEDS: Aspirin 81 MG Tab.Chew PO SCH (10:11)
[2020-10-20] MEDS: Losartan 50 MG Tab PO SCH (10:11)
[2020-10-20] MEDS: Megestrol 40 MG Tab PO SCH (10:11)
[2020-10-20] MEDS: amLODIPine 5 MG Tab PO SCH (10:12)
[2020-10-20] MEDS: Sodium Chloride 1 GM Tab PO SCH ×2 (10:12→20:35)
[2020-10-20] MEDS: Enoxaparin 40 MG/0.4 ML Syringe SUBCUT SCH (10:12)
[2020-10-20] MEDS: Nystatin Topical Powder 30 GM Bottle TOP SCH ×2 (12:24→20:36)
[2020-10-20] MEDS: METAMUCIL PO SCH (12:25)
[2020-10-20] MEDS: Acetaminophen 325 MG Tab PO PRN (17:09)
[2020-10-20] MEDS: Sertraline 50 MG Tab PO SCH (20:36)
[2020-10-20] MEDS: Melatonin 3 MG Tab PO PRN (20:36)
[2020-10-21] MEDS: oxyCODONE 5 MG Tab PO PRN (00:49)
[2020-10-21] MEDS: Pantoprazole 40 MG Tab.CR PO SCH (06:05)
[2020-10-21] MEDS: ClonazePAM 0.5 MG Tab PO SCH ×3 (06:05→22:03)
[2020-10-21] MEDS: Budesonide 0.5 MG/2 ML Neb Susp INH SCH ×2 (08:06→18:02)
[2020-10-21] MEDS: Polyethylene Glycol 3350 Powder 17 GM Packet PO SCH (09:42)
[2020-10-21] MEDS: Sodium Chloride 1 GM Tab PO SCH ×2 (09:42→20:41)
[2020-10-21] MEDS: Enoxaparin 40 MG/0.4 ML Syringe SUBCUT SCH (09:42)
[2020-10-21] MEDS: Aspirin 81 MG Tab.Chew PO SCH (09:43)
[2020-10-21] MEDS: Calcium Carbonate/Vitamin D3 1250 MG-5 MCG Tab PO SCH (09:43)
[2020-10-21] MEDS: amLODIPine 5 MG Tab PO SCH (09:44)
[2020-10-21] MEDS: Megestrol 40 MG Tab PO SCH (09:44)
[2020-10-21] MEDS: Furosemide 20 MG Tab PO SCH (09:44)
[2020-10-21] MEDS: Losartan 50 MG Tab PO SCH (09:45)
[2020-10-21] MEDS: Nystatin Topical Powder 30 GM Bottle TOP SCH ×2 (10:23→22:04)
[2020-10-21] MEDS: METAMUCIL PO SCH (10:25)
[2020-10-21] MEDS: Acetaminophen 325 MG Tab PO PRN (17:13)
[2020-10-21] MEDS: Sertraline 50 MG Tab PO SCH (20:41)
[2020-10-21] MEDS: Melatonin 3 MG Tab PO PRN (20:42)
[2020-10-22] MEDS: ClonazePAM 0.5 MG Tab PO SCH ×3 (06:22→22:47)
[2020-10-22] MEDS: Pantoprazole 40 MG Tab.CR PO SCH (06:23)
[2020-10-22] MEDS: Polyethylene Glycol 3350 Powder 17 GM Packet PO SCH (08:37)
[2020-10-22] MEDS: Enoxaparin 40 MG/0.4 ML Syringe SUBCUT SCH (08:40)
[2020-10-22] MEDS: Losartan 50 MG Tab PO SCH (08:41)
[2020-10-22] MEDS: Furosemide 20 MG Tab PO SCH (08:41)
[2020-10-22] MEDS: Aspirin 81 MG Tab.Chew PO SCH (08:41)
[2020-10-22] MEDS: Sodium Chloride 1 GM Tab PO SCH ×2 (08:42→20:33)
[2020-10-22] MEDS: amLODIPine 5 MG Tab PO SCH (08:42)
[2020-10-22] MEDS: Budesonide 0.5 MG/2 ML Neb Susp INH SCH ×2 (08:42→17:55)
[2020-10-22] MEDS: Megestrol 40 MG Tab PO SCH (08:42)
[2020-10-22] MEDS: Calcium Carbonate/Vitamin D3 1250 MG-5 MCG Tab PO SCH (08:42)
[2020-10-22] MEDS: METAMUCIL PO SCH (08:43)
[2020-10-22] MEDS: Nystatin Topical Powder 30 GM Bottle TOP SCH ×2 (10:15→20:37)
[2020-10-22] MEDS: Acetaminophen 325 MG Tab PO PRN ×2 (18:08→22:44)
[2020-10-22] MEDS: Sertraline 50 MG Tab PO SCH (20:33)
[2020-10-22] MEDS: Melatonin 3 MG Tab PO PRN (20:33)
[2020-10-23] MEDS: Pantoprazole 40 MG Tab.CR PO SCH (05:45)
[2020-10-23] MEDS: ClonazePAM 0.5 MG Tab PO SCH ×2 (05:45→13:58)
[2020-10-23] MEDS: Budesonide 0.5 MG/2 ML Neb Susp INH SCH ×2 (08:14→18:51)
[2020-10-23] MEDS: amLODIPine 5 MG Tab PO SCH (09:10)
[2020-10-23] MEDS: Enoxaparin 40 MG/0.4 ML Syringe SUBCUT SCH (09:10)
[2020-10-23] MEDS: Polyethylene Glycol 3350 Powder 17 GM Packet PO SCH (09:10)
[2020-10-23] MEDS: Losartan 50 MG Tab PO SCH (09:10)
[2020-10-23] MEDS: Aspirin 81 MG Tab.Chew PO SCH (09:11)
[2020-10-23] MEDS: Megestrol 40 MG Tab PO SCH (09:11)
[2020-10-23] MEDS: Sodium Chloride 1 GM Tab PO SCH ×2 (09:11→21:24)
[2020-10-23] MEDS: Calcium Carbonate/Vitamin D3 1250 MG-5 MCG Tab PO SCH (09:11)
[2020-10-23] MEDS: Nystatin Topical Powder 30 GM Bottle TOP SCH (09:12)
[2020-10-23] MEDS: Furosemide 20 MG Tab PO SCH (09:12)
[2020-10-23] MEDS: METAMUCIL PO SCH (09:13)
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
[2020-10-23] MEDS: ClonazePAM 0.5 MG Tab PO PRN (18:53)
[2020-10-23] MEDS: Acetaminophen 325 MG Tab PO PRN (18:53)
[2020-10-23] MEDS ORDERED: Nystatin Topical Powder 30 GM Bottle TOP SCH (21:00)
[2020-10-23] MEDS: Sertraline 50 MG Tab PO SCH (21:24)
[2020-10-23] MEDS: Melatonin 3 MG Tab PO PRN (21:24)
[2020-10-24] MEDS: Acetaminophen 325 MG Tab PO PRN ×2 (00:32→17:41)
[2020-10-24] MEDS: Pantoprazole 40 MG Tab.CR PO SCH (06:04)
[2020-10-24] MEDS: amLODIPine 5 MG Tab PO SCH (09:35)
[2020-10-24] MEDS: Sodium Chloride 1 GM Tab PO SCH ×2 (09:35→20:44)
[2020-10-24] MEDS: Calcium Carbonate/Vitamin D3 1250 MG-5 MCG Tab PO SCH (09:35)
[2020-10-24] MEDS: Aspirin 81 MG Tab.Chew PO SCH (09:37)
[2020-10-24] MEDS: Losartan 50 MG Tab PO SCH (09:37)
[2020-10-24] MEDS: Furosemide 20 MG Tab PO SCH (09:37)
[2020-10-24] MEDS: Megestrol 40 MG Tab PO SCH (09:38)
[2020-10-24] MEDS: Polyethylene Glycol 3350 Powder 17 GM Packet PO SCH (09:38)
[2020-10-24] MEDS: ClonazePAM 0.5 MG Tab PO PRN ×2 (09:38→17:42)
[2020-10-24] MEDS: Enoxaparin 40 MG/0.4 ML Syringe SUBCUT SCH (09:39)
[2020-10-24] MEDS: Budesonide 0.5 MG/2 ML Neb Susp INH SCH ×2 (10:28→18:01)
[2020-10-24] MEDS ORDERED: VITAMIN D PO SCH (11:00)
[2020-10-24] MEDS: METAMUCIL PO SCH (15:15)
[2020-10-24] MEDS: Melatonin 3 MG Tab PO PRN (20:42)
[2020-10-24] MEDS: Sertraline 50 MG Tab PO SCH (20:45)
[2020-10-25] MEDS: Pantoprazole 40 MG Tab.CR PO SCH (05:52)
[2020-10-25] MEDS: ClonazePAM 0.5 MG Tab PO PRN (09:00)
[2020-10-25] MEDS: Losartan 50 MG Tab PO SCH (09:00)
[2020-10-25] MEDS: Aspirin 81 MG Tab.Chew PO SCH (09:00)
[2020-10-25] MEDS: Megestrol 40 MG Tab PO SCH (09:00)
[2020-10-25] MEDS: amLODIPine 5 MG Tab PO SCH (09:01)
[2020-10-25] MEDS: Calcium Carbonate/Vitamin D3 1250 MG-5 MCG Tab PO SCH (09:01)
[2020-10-25] MEDS: Furosemide 20 MG Tab PO SCH (09:03)
[2020-10-25] MEDS: Polyethylene Glycol 3350 Powder 17 GM Packet PO SCH (09:03)
[2020-10-25] MEDS: Enoxaparin 40 MG/0.4 ML Syringe SUBCUT SCH (09:04)
[2020-10-25] MEDS: METAMUCIL PO SCH (09:04)
[2020-10-25] MEDS: Budesonide 0.5 MG/2 ML Neb Susp INH SCH (09:04)
[2020-10-25] MEDS: Sodium Chloride 1 GM Tab PO SCH (09:04)
[2020-10-25] MEDS: Acetaminophen 325 MG Tab PO PRN (09:36)
--- NOTE | 2020-10-25 09:41 | PCM.DCSUM1 ---
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 10/06/20 07:44 Dose: 75 mg Documented by: Ertapenem 1 gm/ Sodium (Chloride) 50 mls @ 100 mls/hr IV Q24H [facility] Stop: 10/17/20 09:01 Last Admin: 10/17/20 10:54 Dose: 100 mls/hr Documented by: Losartan Potassium (Losartan 50 Mg Tab) 50 mg PO DAILY [facility] Last Admin: 09/22/20 07:59 Dose: 50 mg Documented by: Non-Formulary Medication (Sennosides [Senna Lax]) 8.6 mg PO BID [facility] Last Admin: 09/25/20 14:32 Dose: Not Given Documented by: Nystatin (Nystatin Topical Powder 30 Gm Bottle) 0 gm TOP BID [facility] Last Admin: 10/23/20 09:12 Dose: 1 applic Documented by: Pantoprazole Sodium (Pantoprazole 40 Mg Tab.Cr) 40 mg PO BIDAC [facility] Last Admin: 10/06/20 05:25 Dose: 40 mg Documented by: Psyllium Husk (Psyllium Husk Powder Sugar Free 5.85 Gm Packet) 1 pkt PO DAILY [facility] Last Admin: 09/22/20 10:33 Dose: Not Given Documented by: Senna/Docusate Sodium (Docusate Sodium/Sennosides 50-8.6 Mg Tab) 1 tab PO BID [facility] Last Admin: 10/06/20 08:01 Dose: 1 tab Documented by: Sertraline HCl (Sertraline 50 Mg Tab) 25 mg PO BEDTIME [facility] Last Admin: 10/17/20 21:13 Dose: 25 mg Documented by: Sodium Polystyrene Sulfonate (Sodium Polystyrene Sulfonate 15 Gm/60 Ml Susp 60 Ml Bot) 30 gm PO NOW ONE Stop: 10/04/20 16:55 Last Admin: 10/04/20 17:23 Dose: 30 gm Documented by: Tamsulosin HCl (Tamsulosin 0.4 Mg Cap.Er) 0.4 mg PO DAILY [facility] Last Admin: 10/06/20 08:02 Dose: 0.4 mg Documented by: Trimethoprim/Sulfamethoxazole (Sulfamethoxazole/Trimethoprim 800-160 Mg Tab) 1 tab PO BID [facility] Stop: 09/28/20 23:59 Last Admin: 09/24/20 21:12 Dose: 1 tab Documented by: - Exam Quality Assessment: Denies: Supplemental Oxygen General: Reports: Alert, Oriented, Cooperative, No Acute Distress HEENT: Reports: Pupils Equal, Pupils Reactive, EOMI, Mucous Membr. Moist/[place] Neck: Reports: Supple Lungs: Reports: Clear to Auscultation, Normal Respiratory Effort Cardiovascular: Reports: Regular Rate, Regular Rhythm GI/Abdominal Exam: Normal Bowel Sounds, Soft, Non-Tender, No Organomegaly, No Distention, No Abnormal Bruit (Female) Exam: Deferred Rectal (Female) Exam: Deferred Back Exam: Reports: Normal Inspection, Decreased Range of Motion Extremities: Normal Inspection, Normal Range of Motion, Non-Tender, No Pedal Edema, Normal Capillary Refill, Other (Right lower extremity with orthopedic leg support) Skin: Reports: Warm, Dry, Intact Neurological: Reports: No New Focal Deficit. Denies: Normal Gait Psy/Mental Status: Reports: Alert, Normal Affect, Normal Mood
== END 2020-10-25 10:00 | DRG 560 ==
LOC: DL.MS 16:21
PROVIDERS: ADMIT Internal Medicine; ATTEND Internal Medicine
DX: S72.91XD Unspecified fracture of right femur, subsequent encounter for closed fracture with routine healing (principal); N39.0 Urinary tract infection, site not specified; E87.1 Hypo-osmolality and hyponatremia; E46 Unspecified protein-calorie malnutrition; S42.301D Unspecified fracture of shaft of humerus, right arm, subsequent encounter for fracture with routine healing; S82.201D Unspecified fracture of shaft of right tibia, subsequent encounter for closed fracture with routine healing; S82.401D Unspecified fracture of shaft of right fibula, subsequent encounter for closed fracture with routine healing; K59.00 Constipation, unspecified; Z20.822 Contact with and (suspected) exposure to COVID-19; M80.00XG Age-related osteoporosis with current pathological fracture, unspecified site, subsequent encounter for fracture with delayed healing; F41.9 Anxiety disorder, unspecified; F32.9 Major depressive disorder, single episode, unspecified; K21.9 Gastro-esophageal reflux disease without esophagitis; J45.909 Unspecified asthma, uncomplicated; N32.81 Overactive bladder; R53.1 Weakness; E87.5 Hyperkalemia; D63.8 Anemia in other chronic diseases classified elsewhere; G20 Parkinson's disease; R35.0 Frequency of micturition; I10 Essential (primary) hypertension; Z28.82 Immunization not carried out because of caregiver refusal; Z98.41 Cataract extraction status, right eye; Z98.42 Cataract extraction status, left eye; Z90.49 Acquired absence of other specified parts of digestive tract; Z87.891 Personal history of nicotine dependence; Z88.0 Allergy status to penicillin
CPT/HCPCS: 36415; 51798; 73610-LT; 73630-LT; 80048; 80051; 80053; 81001; 82272; 82565; 82728; 83540; 83550; 83735; 84295; 85018; 85025; 85610; 85730; 87086; 87088; 87186; 94640; 97110-GO; 97110-GP; 97116-GP; 97140-GP; 97162-GP; 97164-GP; 97166-GO; 97168-GO; 97530-GO; 97530-GP; 97535-GO; A9270-GY; J0696; J1335; J1650; J3420; J7613-GY; U0002